=== PATIENT | female | born 1965 | race Caucasian/White ===

== ENCOUNTER → 2016-09-27 | Outpatient (CLI) | payer OTHER ==
--- NOTE | 2016-09-29 09:09 | SLEEPCENT ---
DATE OF PROCEDURE: 09/27/2016 ORDERED BY: ANA Beltran Nocturnal polysomnography was performed for the titration of pressure therapy in this patient with obstructive sleep apnea syndrome, apnea hypopnea index of 13.9. For testing, the patient was fit with a ResMed AirFit F10 full face mask of small size. 4 cm of water pressure were applied to the circuit and the lights were extinguished. 6 hours and 48 minutes of data were reviewed. There were 337 minutes of sleep identified. Sleep latency was prolonged at 55 minutes. Rapid eye movement (REM) latency was short at 52 minutes. Sleep architecture was good with 4 REM periods. Overall sleep efficiency was 83%. The patient's electrocardiogram (EKG) showed a sinus rhythm with an average heart rate of 75 beats per minute. Electroencephalogram (EEG) showed reasonably normal waveforms for awake and sleep. Respiratory events were found best palliated with CPAP at a pressure of +6. CPAP tolerance was good. There was some limb activity. Limb movement arousals occurred 5.3 times per hour, similar to the diagnostic night. IMPRESSION: Obstructive sleep apnea syndrome (G47.33). RECOMMENDATION: Nightly use of pressure therapy 6 cm of water.
== END ==
LOC: M SLEEP 19:41
PROVIDERS: ATTEND Nurse Practitioner Adult Health
DX: G47.33 Obstructive sleep apnea (adult) (pediatric) (principal)